=== PATIENT | male | born 1985 | race Two or more races ===

== ENCOUNTER 2023-09-16 17:06 | Emergency (ER) | payer OTHER ==
[~2023-09-16] VITALS: Ht 185.4 cm; Wt 117.9 kg
[2023-09-16] MEDS ORDERED: METHYLPREDNISOLONE SOD SUCC 40 MG VIAL IM ONE (18:45)
[2023-09-16] MEDS ORDERED: KETOROLAC TROMETHAMINE 60 MG VIAL IM ONE (18:45)
== END 2023-09-16 21:06 | disposition home or self-care (01) ==
LOC: ER 17:07
DX: M25.462 Effusion, left knee (principal)

== ENCOUNTER 2023-10-01 18:35 | Emergency (ER) | payer OTHER ==
[~2023-10-01] VITALS: Ht 188 cm; Wt 117.0 kg
[2023-10-01 19:17] LABS: HEMATOCRIT 44.6 % (39.0-48.0); HEMOGLOBIN 15.5 g/dL (13-16.00); MEAN CELL VOLUME 90.8 fL (80.0-100.00); MEAN CORPUSCULAR HEMOGLOBIN 31.5 pg (27.00-32.0); MEAN CORPUSCULAR HGB CONC 34.7 g/dl (32.0-36.0); PLATELET COUNT 258 K/uL (150-450); RED BLOOD COUNT 4.91 M/uL (4.00-6.00); RED CELL DISTRIBUTION WIDTH 13.3 % (11.5-14.5)
[2023-10-01] MEDS ORDERED: KETOROLAC TROMETHAMINE 30 MG VIAL IM STA (19:22)
[2023-10-01] MEDS ORDERED: KETOROLAC TROMETHAMINE 30 MG VIAL ONE (19:27)
== END 2023-10-01 19:49 | disposition home or self-care (01) ==
LOC: ER 18:37
PROVIDERS: General Practice
DX: M25.562 Pain in left knee (principal)